=== PATIENT | male | born 1980 | race Caucasian/White ===

== ENCOUNTER 2017-05-27 22:21 | Emergency (ER) | payer SELFPAY ==
[2017-05-27 22:28] VITALS: BMI 21.9
[2017-05-27] MEDS ORDERED: TORADOL 60 MG VIAL ONE (22:54)
--- NOTE | 2017-05-27 22:54 | DR.GENAD ---
HPI - PCP Primary Care Physician: NFD - Complaint/Symptoms Chief Complaint Doctors Comments: Patient injured himself on the job 4 days ago by lifting objects. He presents today with complaint of lumbar pain Chief Complaint:: HURT BACK AT WORK ON SUNDAY; STATES HE HASN'T GOTTEN ANY BETTER Self Treatment fo Chief Complaint: "TYLENOL AND STUFF" - Source History Provided: Patient - Mode of Arrival Mode of Arrival: Ambulatory - Timing Onset of Chief Complaint: 05/24/17 PMH - PMH Past Medical History: No Past Surgical History: No - Family History History of Family Medical Conditions: No - Social History Alcohol Use: None Do you use any recreational Drugs:: No Lives With: Spouse Lives Where: Home - infectious screening In the last 2 months have you had wt loss of >10#?: NO Have you had fever, night sweats or hemotysis?: No Have you traveled outside the country in the last 6 months?: No Isolation: Standard ROS - Review of Systems Constitutional: No Symptoms Reported Eyes: No Symptoms Reported ENTM: No Symptoms Reported Respiratoy: No Symptoms Reported Cardiovascular: No Symptoms Reported Gastrointestinal/Abdominal: No Symptoms Reported Genitourinary: No Symptoms Reported Neurological: No Symptoms Reported Musculoskeletal: No Symptoms Reported, Back Pain (bilateral flank) Integumentary: No Symptoms Reported Hematologic/Lymphatic: No Symptoms Reported Endocrine: No Symptoms Reported Psychiatric: No Symptoms Reported All Other Systems: Reviewed and Negative PE - Vital Signs Vitals: Pulse Rate 89 Respiratory Rate 26 Blood Pressure 109/64 O2 Sat by Pulse Oximetry 100 - General Limitations: No Limitations General Appearance: Alert, In No Apparent Distress - Head Head Exam: Normal Inspection, Atraumatic - Eyes Eye exam: Normal Appearance, PERRL, EOMI - ENT ENT Exam: Normal Exam, Normal Oropharynx External Ear Exam: Normal External Inspection TM/Canal Exam: Bilateral Normal Nose Exam: Normal Nose Exam Mouth Exam: Normal Inspection Throat Exam: Normal Inspection - Neck Neck Exam: Normal Inspection, Full ROM - Chest Chest Inspection: Normal Inspection - Respiratory Respiratory Exam: Normal Lung Sounds Bilat Respiratory Exam: Bilateral Clear to Auscultation - Cardiovascular Cardiovascular Exam: Regular Rate, Normal Rhythm - Abdominal Exam Abdominal Exam: Normal Inspection Abdominal Tenderness: negative: RUQ, RLQ, LUQ, LLQ, Epigastrium, Suprapubic, Diffuse, Mild, Moderate, Severe, Other - Extremities Extremities Exam: Normal Inspection, Full ROM - Back Back Exam: Full ROM, Tenderness (mid lumbar area) - Neurologic Neurological Exam: Alert, Oriented X3, CN II-XII Intact - Psychiatric Psychiatric Exam: Normal Affect, Normal Mood ROR - Labs Reviewed Laboratory Results Reviewed?: Yes (UA: Leuk 2+;WBC 8-12) Laboratory: Specimen Type Clean catch urine 05/27/17 23:00 Urine Color Yellow (YELLOW) 05/27/17 23:00 Urine Appearance Slightly hazy (CLEAR) 05/27/17 23:00 Urine pH 5.0 (5.0 - 8.0) 05/27/17 23:00 Ur Specific [place] 1.025 (1.000-1.030) 05/27/17 23:00 Urine Protein 1+ (NEGATIVE) 05/27/17 23:00 Urine Glucose (UA) Negative (NEGATIVE) 05/27/17 23:00 Urine Ketones 1+ (NEGATIVE) 05/27/17 23:00 Urine Occult Blood Negative (NEGATIVE) 05/27/17 23:00 Urine Nitrite Negative (NEGATIVE) 05/27/17 23:00 Urine Bilirubin Negative (NEGATIVE) 05/27/17 23:00 Urine Urobilinogen Normal (NORMAL) 05/27/17 23:00 Ur Leukocyte Esterase 2+ (NEGATIVE) 05/27/17 23:00 Urine RBC 0-3 /HPF (NEGATIVE) 05/27/17 23:00 Urine WBC 8-12 /HPF (NEGATIVE) 05/27/17 23:00 Ur Squamous Epith Cells Rare /HPF (NEGATIVE) 05/27/17 23:00 Urine Bacteria 1+ /HPF (NEGATIVE) 05/27/17 23:00 Urine Mucus Moderate /HPF (NEGATIVE) 05/27/17 23:00 Ur Culture Indicated? Yes/culture set up 05/27/17 23:00 - XRAY XRAY Interpreted by: Radiologist (Lumbar spine: No radiographic evidencs of abnormality) - Diagnosis Discharge Problem: UTI (urinary tract infection) Qualifiers: Urinary tract infection type: urethritis Qualified Code(s): N34.2 - Other urethritis - Discharge Plan Condition: Stable - Follow ups/Referrals Follow ups/Referrals: NFD,None [Primary Care Provider] - 3 days - Instructions
[2017-05-27] MEDS: TORADOL 60 MG VIAL IM ONE (23:01)
[2017-05-27 23:17] LABS: BILIRUBIN,URINE NEGATIVE (NEGATIVE); BLOOD/HEMOGLOBIN,URINE NEGATIVE (NEGATIVE); GLUCOSE, URINE NEGATIVE (NEGATIVE); KETONES,URINE 1+ (NEGATIVE); LEUKOCYTE ESTERASE ,URINE 2+ (NEGATIVE); NITRITES,URINE NEGATIVE (NEGATIVE); PROTEIN,URINE 1+ (NEGATIVE); UROBILINOGEN,URINE NORMAL (NORMAL)
[2017-05-27 23:25] LABS: APPEARANCE,URINE SLIGHTLY HAZY (CLEAR); BACTERIA,URINE 1+ /HPF (NEGATIVE); COLOR,URINE YELLOW (YELLOW); MUCUS,URINE MODERATE /HPF (NEGATIVE); RBC,URINE 0-3 /HPF (NEGATIVE); SQUAMOUS EPITHELIAL CELL,UR RARE /HPF (NEGATIVE)
--- NOTE | 2017-05-27 23:55 | RAD ---
Three views of the lumbar spine Indication: Back pain after lifting injury Findings: No acute fracture or spondylolisthesis of the lumbar spine. No spondylolysis or spondylosis . SI joints are intact. Impression: No radiographic abnormality within the lumbar spine. Reported By:
[2017-05-28] MEDS: ROCEPHIN VIAL 1 GM IM ONE (00:21)
[2017-05-28] MEDS ORDERED: ROCEPHIN VIAL 1 GM ONE (00:24)
[2017-05-28] MEDS ORDERED: XYLOCAINE 1 % (PLAIN) ONE (00:24)
[2017-05-28 00:45] VITALS: BP 121/63
== END 2017-05-28 00:40 | disposition home or self-care (01) ==
LOC: ER 22:21
DX: N34.2 Other urethritis (principal)
CPT/HCPCS: 72100; 81001; 87086; 96372; 99282; J0696; J1885; J2001